=== PATIENT | female | born 1985 | race African-American/Black ===

== ENCOUNTER 2020-07-22 12:32 | Inpatient (IN) | payer OTHER ==
[2020-07-22 16:05] VITALS: BMI 32.5
[2020-07-22] MEDS ORDERED: BISMUTH SUBSALICYLATE 524 MG/30 ML UD PO PRN (18:02)
[2020-07-22] MEDS ORDERED: MAGNESIUM CITRATE 300 ML BOTTLE PO PRN (18:02)
[2020-07-22] MEDS ORDERED: IBUPROFEN 400 MG TABLET (FP) PO PRN (18:02)
[2020-07-22] MEDS ORDERED: MAGNESIUM HYDROX 2400MG/30ML ORAL SUSPENSION 30 ML CUP PO PRN (18:02)
[2020-07-22] MEDS ORDERED: NICOTINE POLACRILEX 2 MG GUM BUC PRN (18:02)
[2020-07-22] MEDS ORDERED: ACETAMINOPHEN 325 MG TABLET (FP) PO PRN ×2 (18:02)
[2020-07-22] MEDS ORDERED: ONDANSETRON *ODT* 4 MG TABLET SL PRN (18:02)
[2020-07-22] MEDS ORDERED: MENTHOL/PHENOL 1 EACH UD MM PRN (18:02)
[2020-07-22] MEDS ORDERED: ALBUTEROL SO4 HFA INHALER IH PRN (18:04)
[2020-07-22] MEDS ORDERED: chlordiazePOXIDE HCL 25 MG CAPSULE ONE (18:18)
[2020-07-22] MEDS: chlordiazePOXIDE HCL 25 MG CAPSULE PO PRN (18:21)
[2020-07-22] MEDS ORDERED: ALBUTEROL SO4 0.042% IH SOL 1.25 MG/3 ML VIAL.NEB NEB PRN (18:42)
[2020-07-22] MEDS: MELATONIN 5 MG TABLETS PO SCH (22:11)
[2020-07-22] MEDS: chlordiazePOXIDE HCL 25 MG CAPSULE PO SCH (22:11)
[2020-07-22] MEDS: THIAMINE HCL 100 MG TABLET (FP) PO SCH (22:11)
[2020-07-22] MEDS: hydrOXYzine PAMOATE 25 MG CAPSULE (FP) PO SCH (22:11)
[2020-07-23] MEDS: chlordiazePOXIDE HCL 25 MG CAPSULE PO SCH ×4 (06:07→22:34)
[2020-07-23] MEDS: hydrOXYzine PAMOATE 25 MG CAPSULE (FP) PO SCH ×2 (06:07→11:57)
[2020-07-23 09:57] LABS: POTASSIUM 3.9 mmol/L (3.5-5.1)
[2020-07-23 10:00] LABS: HEMATOCRIT 41.5 % (32.4-45.2); HEMOGLOBIN 13.9 GM/dL (10.7-15.3); MCH 30.3 pg (25.7-33.7); MCHC 33.4 g/dl (32.0-36.0); MEAN CELL VOLUME 90.7 fl (80-96); MEAN PLT VOLUME 9.1 fl (7.5-11.1); PLATELET COUNT 280 K/MM3 (134-434); RBC 4.58 M/mm3 (3.60-5.2); WHITE BLOOD COUNT 6.2 K/mm3 (4.0-10.0)
[2020-07-23 10:06] LABS: BLOOD UREA NITROGEN 12.3 mg/dL (7-18)
[2020-07-23 10:07] LABS: ALBUMIN 3.4 g/dl (3.4-5.0)
[2020-07-23 10:08] LABS: CALCIUM 8.8 mg/dL (8.5-10.1)
[2020-07-23 10:11] LABS: CREATININE 0.9 mg/dL (0.55-1.3)
[2020-07-23 10:13] LABS: BILIRUBIN,TOTAL 0.6 mg/dL (0.2-1)
[2020-07-23 10:59] LABS: HIV INTERPRETATION NEGATIVE (NEGATIVE)
[2020-07-23] MEDS: amLODIPine BESYLATE 10 MG TABLET (FP) PO SCH (11:57)
[2020-07-23] MEDS: PRENATAL VITAMINS W/ FOLIC ACID TABLET (FP) PO SCH (11:57)
[2020-07-23] MEDS: cloNIDine HCL 0.1 MG TABLET PO PRN ×2 (14:20→22:34)
[2020-07-23] MEDS: chlordiazePOXIDE HCL 25 MG CAPSULE PO PRN (14:21)
[2020-07-23] MEDS: hydrOXYzine PAMOATE 25 MG CAPSULE (FP) PO PRN (14:21)
[2020-07-23] MEDS: METHOCARBAMOL 500 MG TABLET PO PRN (14:22)
[2020-07-23] MEDS: THIAMINE HCL 100 MG TABLET (FP) PO SCH (22:34)
[2020-07-23] MEDS: MELATONIN 5 MG TABLETS PO SCH (22:34)
[2020-07-23] MEDS: traZODone HCL 50 MG TABLET (FP) PO SCH (22:34)
[2020-07-24] MEDS: cloNIDine HCL 0.1 MG TABLET PO PRN ×2 (05:38→12:02)
[2020-07-24] MEDS: METHOCARBAMOL 500 MG TABLET PO PRN ×2 (05:39→18:09)
[2020-07-24] MEDS: chlordiazePOXIDE HCL 25 MG CAPSULE PO SCH ×4 (05:42→22:21)
[2020-07-24] MEDS: amLODIPine BESYLATE 10 MG TABLET (FP) PO SCH (11:05)
[2020-07-24] MEDS: PRENATAL VITAMINS W/ FOLIC ACID TABLET (FP) PO SCH (11:05)
[2020-07-24] MEDS ORDERED: cloNIDine HCL 0.1 MG TABLET PO ONE (12:15)
[2020-07-24] MEDS: CITALOPRAM HYDROBROMIDE 10 MG TABLET PO SCH (14:48)
[2020-07-24] MEDS: MAG HYDROX/AL HYDROX/SIMETH 30 ML UNIT-DOSE CUP PO PRN ×2 (15:17→22:25)
[2020-07-24] MEDS: MELATONIN 5 MG TABLETS PO SCH (22:20)
[2020-07-24] MEDS: THIAMINE HCL 100 MG TABLET (FP) PO SCH (22:21)
[2020-07-24] MEDS: cloNIDine HCL 0.1 MG TABLET PO SCH (22:21)
[2020-07-24] MEDS: traZODone HCL 50 MG TABLET (FP) PO SCH (22:22)
[2020-07-25] MEDS ORDERED: chlordiazePOXIDE HCL 10 MG CAPSULE PO PRN
[2020-07-25] MEDS: METHOCARBAMOL 500 MG TABLET PO PRN ×2 (05:38→22:20)
[2020-07-25] MEDS: chlordiazePOXIDE HCL 10 MG CAPSULE PO SCH ×4 (05:39→22:18)
[2020-07-25] MEDS: MAG HYDROX/AL HYDROX/SIMETH 30 ML UNIT-DOSE CUP PO PRN (05:39)
[2020-07-25] MEDS: hydrOXYzine PAMOATE 25 MG CAPSULE (FP) PO PRN ×2 (05:40→10:07)
[2020-07-25] MEDS: CITALOPRAM HYDROBROMIDE 10 MG TABLET PO SCH (10:06)
[2020-07-25] MEDS: PRENATAL VITAMINS W/ FOLIC ACID TABLET (FP) PO SCH (10:07)
[2020-07-25] MEDS: cloNIDine HCL 0.1 MG TABLET PO SCH ×2 (10:07→22:17)
[2020-07-25] MEDS: amLODIPine BESYLATE 10 MG TABLET (FP) PO SCH (10:07)
[2020-07-25] MEDS: MELATONIN 5 MG TABLETS PO SCH (22:17)
[2020-07-25] MEDS: THIAMINE HCL 100 MG TABLET (FP) PO SCH (22:17)
[2020-07-25] MEDS: traZODone HCL 50 MG TABLET (FP) PO SCH (22:17)
[2020-07-26] MEDS: chlordiazePOXIDE HCL 10 MG CAPSULE PO SCH ×2 (04:32→17:27)
[2020-07-26] MEDS: MAG HYDROX/AL HYDROX/SIMETH 30 ML UNIT-DOSE CUP PO PRN (04:32)
[2020-07-26] MEDS: METHOCARBAMOL 500 MG TABLET PO PRN ×2 (04:32→17:28)
[2020-07-26] MEDS: cloNIDine HCL 0.1 MG TABLET PO SCH ×2 (10:09→22:17)
[2020-07-26] MEDS: amLODIPine BESYLATE 10 MG TABLET (FP) PO SCH (10:09)
[2020-07-26] MEDS: CITALOPRAM HYDROBROMIDE 10 MG TABLET PO SCH (10:10)
[2020-07-26] MEDS: hydrOXYzine PAMOATE 25 MG CAPSULE (FP) PO PRN ×2 (10:10→17:32)
[2020-07-26] MEDS: PRENATAL VITAMINS W/ FOLIC ACID TABLET (FP) PO SCH (10:10)
[2020-07-26] MEDS: traZODone HCL 50 MG TABLET (FP) PO SCH (22:17)
[2020-07-26] MEDS: THIAMINE HCL 100 MG TABLET (FP) PO SCH (22:17)
[2020-07-26] MEDS: MELATONIN 5 MG TABLETS PO SCH (22:18)
[2020-07-27] MEDS ORDERED: chlordiazePOXIDE HCL 10 MG CAPSULE PO ONE (05:00)
[2020-07-27] MEDS: hydrOXYzine PAMOATE 25 MG CAPSULE (FP) PO PRN (06:19)
[2020-07-27] MEDS: METHOCARBAMOL 500 MG TABLET PO PRN (06:19)
[2020-07-27] MEDS: cloNIDine HCL 0.1 MG TABLET PO SCH (09:33)
[2020-07-27] MEDS: PRENATAL VITAMINS W/ FOLIC ACID TABLET (FP) PO SCH (09:33)
[2020-07-27] MEDS: CITALOPRAM HYDROBROMIDE 10 MG TABLET PO SCH (09:33)
[2020-07-27] MEDS: amLODIPine BESYLATE 10 MG TABLET (FP) PO SCH (09:33)
[2020-07-27 09:41] VITALS: BP 129/71; PULSE 84; TEMP 97.5
== END 2020-07-27 10:26 | disposition other institution (70) | DRG 774 ==
LOC: YASAS 12:32 → Y6N 16:47
PROVIDERS: ADMIT Allergy & Immunology; ATTEND Allergy & Immunology
PROC: HZ2ZZZZ Detoxification Services for Substance Abuse Treatment (ICD-10-PCS; principal; 2020-07-22)
DX: F10.230 Alcohol dependence with withdrawal, uncomplicated (principal); F14.20 Cocaine dependence, uncomplicated; F12.20 Cannabis dependence, uncomplicated; F17.213 Nicotine dependence, cigarettes, with withdrawal; F43.10 Post-traumatic stress disorder, unspecified; F41.9 Anxiety disorder, unspecified; I10 Essential (primary) hypertension; J45.20 Mild intermittent asthma, uncomplicated; Z91.410 Personal history of adult physical and sexual abuse; Z90.49 Acquired absence of other specified parts of digestive tract; Z88.0 Allergy status to penicillin; Z91.018 Allergy to other foods; Z56.0 Unemployment, unspecified; Z59.0 Homelessness
CPT/HCPCS: 36415; 80053; 85027; 86780; 87389; 93005; 93010; C9803; J0735; Q0162; U0003

== ENCOUNTER 2020-07-27 10:18 | Inpatient (IN) | payer OTHER ==
[2020-07-27] MEDS ORDERED: guaiFENesin 200 MG/10 ML 10 ML UNIT-DOSE CUPS PO PRN (13:00)
[2020-07-27] MEDS ORDERED: P-EPHED 60MG/TRIPROLIDI 2.5MG TABLET PO PRN (13:00)
[2020-07-27] MEDS ORDERED: MENTHOL/PHENOL 1 EACH UD MM PRN (13:00)
[2020-07-27] MEDS ORDERED: LOPERAMIDE HCL 2 MG CAPSULE PO PRN (13:00)
[2020-07-27] MEDS ORDERED: MAG HYDROX/AL HYDROX/SIMETH 30 ML UNIT-DOSE CUP PO PRN (13:00)
[2020-07-27] MEDS ORDERED: IBUPROFEN 400 MG TABLET (FP) PO PRN (13:00)
[2020-07-27] MEDS ORDERED: MAGNESIUM CITRATE 300 ML BOTTLE PO PRN (13:00)
[2020-07-27] MEDS ORDERED: ALBUTEROL SO4 2.5/IPRATROPIUM 0.5 INH SOL 3 ML VIAL.NEB. NEB PRN (13:10)
[2020-07-27] MEDS: METHOCARBAMOL 500 MG TABLET PO SCH ×3 (15:53→21:36)
[2020-07-27] MEDS ORDERED: PT OWN MED DRAWER 7, Y5N ONE (16:36)
[2020-07-27] MEDS: hydrOXYzine PAMOATE 25 MG CAPSULE (FP) PO PRN (16:47)
[2020-07-27] MEDS: THIAMINE HCL 100 MG TABLET (FP) PO SCH (21:36)
[2020-07-27] MEDS: traZODone HCL 50 MG TABLET (FP) PO SCH (21:36)
[2020-07-27] MEDS: cloNIDine HCL 0.1 MG TABLET PO SCH (21:36)
[2020-07-27] MEDS: MELATONIN 5 MG TABLETS PO SCH (21:36)
[2020-07-28] MEDS: hydrOXYzine PAMOATE 25 MG CAPSULE (FP) PO PRN ×3 (06:28→18:12)
[2020-07-28] MEDS: MAGNESIUM HYDROX 2400MG/30ML ORAL SUSPENSION 30 ML CUP PO PRN (06:28)
[2020-07-28] MEDS ORDERED: CITALOPRAM HYDROBROMIDE 10 MG TABLET PO SCH (10:00)
[2020-07-28] MEDS: PRENATAL VITAMINS W/ FOLIC ACID TABLET (FP) PO SCH (10:02)
[2020-07-28] MEDS: NICOTINE 7 MG/24 HOURS TOPICAL PATCH TD SCH (10:02)
[2020-07-28] MEDS: amLODIPine BESYLATE 10 MG TABLET (FP) PO SCH (10:03)
[2020-07-28] MEDS ORDERED: PT OWN MED DRAWER 7, Y5N ONE (10:03)
[2020-07-28] MEDS: cloNIDine HCL 0.1 MG TABLET PO SCH ×2 (10:03→21:05)
[2020-07-28] MEDS: METHOCARBAMOL 500 MG TABLET PO SCH ×4 (10:03→21:05)
[2020-07-28] MEDS: ACETAMINOPHEN 325 MG TABLET (FP) PO PRN (18:12)
[2020-07-28] MEDS: THIAMINE HCL 100 MG TABLET (FP) PO SCH (21:05)
[2020-07-28] MEDS: traZODone HCL 50 MG TABLET (FP) PO SCH (21:05)
[2020-07-28] MEDS: MELATONIN 5 MG TABLETS PO SCH (21:05)
[2020-07-29] MEDS: ACETAMINOPHEN 325 MG TABLET (FP) PO PRN (06:27)
[2020-07-29] MEDS: MAGNESIUM HYDROX 2400MG/30ML ORAL SUSPENSION 30 ML CUP PO PRN (06:27)
[2020-07-29] MEDS: hydrOXYzine PAMOATE 25 MG CAPSULE (FP) PO PRN ×3 (06:27→18:34)
[2020-07-29] MEDS: METHOCARBAMOL 500 MG TABLET PO SCH ×4 (09:58→21:08)
[2020-07-29] MEDS: NICOTINE POLACRILEX 2 MG GUM BUC PRN (09:59)
[2020-07-29] MEDS: cloNIDine HCL 0.1 MG TABLET PO SCH ×2 (09:59→21:08)
[2020-07-29] MEDS: PRENATAL VITAMINS W/ FOLIC ACID TABLET (FP) PO SCH (09:59)
[2020-07-29] MEDS: amLODIPine BESYLATE 10 MG TABLET (FP) PO SCH (09:59)
[2020-07-29] MEDS: NICOTINE 7 MG/24 HOURS TOPICAL PATCH TD SCH (09:59)
[2020-07-29] MEDS: CITALOPRAM HYDROBROMIDE 10 MG TABLET PO SCH (10:47)
[2020-07-29] MEDS ORDERED: PT OWN MED DRAWER 7, Y5N ONE ×3 (11:00→19:14)
[2020-07-29] MEDS: traZODone HCL 50 MG TABLET (FP) PO SCH (21:07)
[2020-07-29] MEDS: THIAMINE HCL 100 MG TABLET (FP) PO SCH (21:08)
[2020-07-29] MEDS: PRAZOSIN HCL 1 MG CAPSULE PO SCH (21:08)
[2020-07-30] MEDS: cloNIDine HCL 0.1 MG TABLET PO SCH ×2 (09:44→21:20)
[2020-07-30] MEDS: PRENATAL VITAMINS W/ FOLIC ACID TABLET (FP) PO SCH (09:44)
[2020-07-30] MEDS: amLODIPine BESYLATE 10 MG TABLET (FP) PO SCH (09:44)
[2020-07-30] MEDS: METHOCARBAMOL 500 MG TABLET PO SCH ×4 (09:44→21:20)
[2020-07-30] MEDS: NICOTINE 7 MG/24 HOURS TOPICAL PATCH TD SCH (09:45)
[2020-07-30] MEDS: CITALOPRAM HYDROBROMIDE 10 MG TABLET PO SCH (09:45)
[2020-07-30] MEDS: hydrOXYzine PAMOATE 25 MG CAPSULE (FP) PO PRN ×2 (09:47→21:19)
[2020-07-30] MEDS ORDERED: ONDANSETRON *ODT* 4 MG TABLET SL PRN (10:58)
[2020-07-30] MEDS ORDERED: PT OWN MED DRAWER 7, Y5N ONE (14:09)
[2020-07-30] MEDS: traZODone HCL 50 MG TABLET (FP) PO SCH (21:19)
[2020-07-30] MEDS: THIAMINE HCL 100 MG TABLET (FP) PO SCH (21:19)
[2020-07-30] MEDS: PRAZOSIN HCL 1 MG CAPSULE PO SCH (21:20)
[2020-07-31] MEDS: MAGNESIUM HYDROX 2400MG/30ML ORAL SUSPENSION 30 ML CUP PO PRN (06:22)
[2020-07-31] MEDS: ACETAMINOPHEN 325 MG TABLET (FP) PO PRN (06:22)
[2020-07-31] MEDS ORDERED: PT OWN MED DRAWER 7, Y5N ONE ×2 (08:53→09:24)
[2020-07-31] MEDS: CITALOPRAM HYDROBROMIDE 10 MG TABLET PO SCH (09:23)
[2020-07-31] MEDS: cloNIDine HCL 0.1 MG TABLET PO SCH ×2 (09:24→21:25)
[2020-07-31] MEDS: METHOCARBAMOL 500 MG TABLET PO SCH ×4 (09:24→21:25)
[2020-07-31] MEDS: amLODIPine BESYLATE 10 MG TABLET (FP) PO SCH (09:25)
[2020-07-31] MEDS: hydrOXYzine PAMOATE 25 MG CAPSULE (FP) PO PRN ×2 (09:25→17:47)
[2020-07-31] MEDS: PRENATAL VITAMINS W/ FOLIC ACID TABLET (FP) PO SCH (09:25)
[2020-07-31] MEDS: NICOTINE 7 MG/24 HOURS TOPICAL PATCH TD SCH (09:27)
[2020-07-31] MEDS: NICOTINE POLACRILEX 2 MG GUM BUC PRN (09:27)
[2020-07-31] MEDS ORDERED: ALBUTEROL SO4 2.5/IPRATROPIUM 0.5 INH SOL 3 ML VIAL.NEB. NEB PRN (09:44)
[2020-07-31] MEDS ORDERED: ALBUTEROL SO4 HFA INHALER IH ONE (20:15)
[2020-07-31] MEDS: THIAMINE HCL 100 MG TABLET (FP) PO SCH (21:25)
[2020-07-31] MEDS: PRAZOSIN HCL 1 MG CAPSULE PO SCH (21:25)
[2020-07-31] MEDS: traZODone HCL 50 MG TABLET (FP) PO SCH (21:26)
[2020-08-01] MEDS ORDERED: ALBUTEROL SO4 HFA INHALER IH PRN (00:51)
[2020-08-01] MEDS ORDERED: PT OWN MED DRAWER 7, Y5N ONE ×2 (09:17→09:54)
[2020-08-01] MEDS: PRENATAL VITAMINS W/ FOLIC ACID TABLET (FP) PO SCH (09:50)
[2020-08-01] MEDS: CITALOPRAM HYDROBROMIDE 10 MG TABLET PO SCH (09:50)
[2020-08-01] MEDS: hydrOXYzine PAMOATE 25 MG CAPSULE (FP) PO PRN ×2 (09:51→21:19)
[2020-08-01] MEDS: METHOCARBAMOL 500 MG TABLET PO SCH ×4 (09:51→21:13)
[2020-08-01] MEDS: NICOTINE 7 MG/24 HOURS TOPICAL PATCH TD SCH (09:51)
[2020-08-01] MEDS: cloNIDine HCL 0.1 MG TABLET PO SCH (09:51)
[2020-08-01] MEDS: amLODIPine BESYLATE 10 MG TABLET (FP) PO SCH (09:51)
[2020-08-01] MEDS: NICOTINE POLACRILEX 2 MG GUM BUC PRN ×3 (09:55→17:14)
[2020-08-01] MEDS: ACETAMINOPHEN 325 MG TABLET (FP) PO PRN (17:13)
[2020-08-01] MEDS: THIAMINE HCL 100 MG TABLET (FP) PO SCH (21:14)
[2020-08-01] MEDS: PRAZOSIN HCL 1 MG CAPSULE PO SCH (21:14)
[2020-08-01] MEDS: traZODone HCL 50 MG TABLET (FP) PO SCH (21:14)
[2020-08-01] MEDS: cloNIDine HCL 0.1 MG TABLET PO PRN (21:19)
[2020-08-02] MEDS: NICOTINE 7 MG/24 HOURS TOPICAL PATCH TD SCH (09:59)
[2020-08-02] MEDS: amLODIPine BESYLATE 10 MG TABLET (FP) PO SCH (09:59)
[2020-08-02] MEDS: CITALOPRAM HYDROBROMIDE 10 MG TABLET PO SCH (09:59)
[2020-08-02] MEDS: METHOCARBAMOL 500 MG TABLET PO SCH ×4 (09:59→21:12)
[2020-08-02] MEDS: PRENATAL VITAMINS W/ FOLIC ACID TABLET (FP) PO SCH (09:59)
[2020-08-02] MEDS: NICOTINE POLACRILEX 2 MG GUM BUC PRN (10:01)
[2020-08-02] MEDS: hydrOXYzine PAMOATE 25 MG CAPSULE (FP) PO PRN ×2 (10:01→21:15)
[2020-08-02] MEDS ORDERED: PT OWN MED DRAWER 7, Y5N ONE (10:20)
[2020-08-02] MEDS: THIAMINE HCL 100 MG TABLET (FP) PO SCH (21:12)
[2020-08-02] MEDS: PRAZOSIN HCL 1 MG CAPSULE PO SCH (21:12)
[2020-08-02] MEDS: traZODone HCL 50 MG TABLET (FP) PO SCH (21:12)
[2020-08-03] MEDS: METHOCARBAMOL 500 MG TABLET PO SCH ×4 (09:20→21:18)
[2020-08-03] MEDS: PRENATAL VITAMINS W/ FOLIC ACID TABLET (FP) PO SCH (09:21)
[2020-08-03] MEDS: CITALOPRAM HYDROBROMIDE 10 MG TABLET PO SCH (09:22)
[2020-08-03] MEDS: amLODIPine BESYLATE 10 MG TABLET (FP) PO SCH (09:22)
[2020-08-03] MEDS: NICOTINE 7 MG/24 HOURS TOPICAL PATCH TD SCH (09:22)
[2020-08-03] MEDS: NICOTINE POLACRILEX 2 MG GUM BUC PRN (09:23)
[2020-08-03] MEDS: hydrOXYzine PAMOATE 25 MG CAPSULE (FP) PO PRN ×3 (09:23→21:18)
[2020-08-03] MEDS: MAGNESIUM HYDROX 2400MG/30ML ORAL SUSPENSION 30 ML CUP PO PRN (09:24)
[2020-08-03] MEDS ORDERED: PT OWN MED DRAWER 7, Y5N ONE ×2 (14:42→21:26)
[2020-08-03] MEDS: cloNIDine HCL 0.1 MG TABLET PO PRN (21:18)
[2020-08-03] MEDS: THIAMINE HCL 100 MG TABLET (FP) PO SCH (21:18)
[2020-08-03] MEDS: traZODone HCL 50 MG TABLET (FP) PO SCH (21:18)
[2020-08-03] MEDS: PRAZOSIN HCL 1 MG CAPSULE PO SCH (21:19)
[2020-08-03] MEDS: MICONAZOLE NITRATE 100 MG SUPP SUPP.VAG PV SCH (21:25)
[2020-08-04] MEDS ORDERED: ALBUTEROL SO4 2.5/IPRATROPIUM 0.5 INH SOL 3 ML VIAL.NEB. NEB PRN (09:44)
[2020-08-04] MEDS: METHOCARBAMOL 500 MG TABLET PO SCH ×4 (10:00→21:06)
[2020-08-04] MEDS: PRENATAL VITAMINS W/ FOLIC ACID TABLET (FP) PO SCH (10:00)
[2020-08-04] MEDS: CITALOPRAM HYDROBROMIDE 10 MG TABLET PO SCH (10:00)
[2020-08-04] MEDS: amLODIPine BESYLATE 10 MG TABLET (FP) PO SCH (10:00)
[2020-08-04] MEDS: hydrOXYzine PAMOATE 25 MG CAPSULE (FP) PO PRN ×2 (10:02→21:10)
[2020-08-04] MEDS: NICOTINE 7 MG/24 HOURS TOPICAL PATCH TD SCH (10:03)
[2020-08-04] MEDS ORDERED: [UNRECOGNIZED DRUG - OTHER] PO SCH (10:14)
[2020-08-04] MEDS ORDERED: PT OWN MED DRAWER 7, Y5N ONE ×3 (10:40→19:56)
[2020-08-04] MEDS: ACETAMINOPHEN 325 MG TABLET (FP) PO PRN (17:52)
[2020-08-04] MEDS: MAGNESIUM HYDROX 2400MG/30ML ORAL SUSPENSION 30 ML CUP PO PRN (17:52)
[2020-08-04] MEDS: PRAZOSIN HCL 1 MG CAPSULE PO SCH (21:06)
[2020-08-04] MEDS: THIAMINE HCL 100 MG TABLET (FP) PO SCH (21:06)
[2020-08-04] MEDS: traZODone HCL 50 MG TABLET (FP) PO SCH (21:07)
[2020-08-04] MEDS: MICONAZOLE NITRATE 100 MG SUPP SUPP.VAG PV SCH (21:08)
[2020-08-04] MEDS: cloNIDine HCL 0.1 MG TABLET PO PRN (21:10)
[2020-08-05] MEDS ORDERED: PT OWN MED DRAWER 7, Y5N ONE ×2 (08:44→21:07)
[2020-08-05] MEDS: METHOCARBAMOL 500 MG TABLET PO SCH ×4 (09:56→21:04)
[2020-08-05] MEDS: amLODIPine BESYLATE 10 MG TABLET (FP) PO SCH (09:56)
[2020-08-05] MEDS: NICOTINE 7 MG/24 HOURS TOPICAL PATCH TD SCH (09:57)
[2020-08-05] MEDS: CITALOPRAM HYDROBROMIDE 20 MG TABLET PO SCH (09:57)
[2020-08-05] MEDS: PRENATAL VITAMINS W/ FOLIC ACID TABLET (FP) PO SCH (09:59)
[2020-08-05] MEDS: ACETAMINOPHEN 325 MG TABLET (FP) PO PRN (18:32)
[2020-08-05] MEDS: THIAMINE HCL 100 MG TABLET (FP) PO SCH (21:04)
[2020-08-05] MEDS: traZODone HCL 50 MG TABLET (FP) PO SCH (21:04)
[2020-08-05] MEDS: PRAZOSIN HCL 1 MG CAPSULE PO SCH (21:04)
[2020-08-05] MEDS: hydrOXYzine PAMOATE 25 MG CAPSULE (FP) PO PRN (21:05)
[2020-08-05] MEDS: MICONAZOLE NITRATE 100 MG SUPP SUPP.VAG PV SCH (21:06)
[2020-08-05] MEDS: cloNIDine HCL 0.1 MG TABLET PO PRN (21:08)
[2020-08-06] MEDS: METHOCARBAMOL 500 MG TABLET PO SCH ×4 (09:48→21:13)
[2020-08-06] MEDS: amLODIPine BESYLATE 10 MG TABLET (FP) PO SCH (09:49)
[2020-08-06] MEDS: CITALOPRAM HYDROBROMIDE 20 MG TABLET PO SCH (09:49)
[2020-08-06] MEDS: PRENATAL VITAMINS W/ FOLIC ACID TABLET (FP) PO SCH (09:49)
[2020-08-06] MEDS: NICOTINE 7 MG/24 HOURS TOPICAL PATCH TD SCH (09:50)
[2020-08-06] MEDS: hydrOXYzine PAMOATE 25 MG CAPSULE (FP) PO PRN ×2 (09:50→21:11)
[2020-08-06] MEDS: THIAMINE HCL 100 MG TABLET (FP) PO SCH (21:11)
[2020-08-06] MEDS: traZODone HCL 50 MG TABLET (FP) PO SCH (21:11)
[2020-08-06] MEDS: PRAZOSIN HCL 1 MG CAPSULE PO SCH (21:11)
[2020-08-06] MEDS: cloNIDine HCL 0.1 MG TABLET PO PRN (21:12)
[2020-08-06] MEDS: MICONAZOLE NITRATE 100 MG SUPP SUPP.VAG PV SCH (21:14)
[2020-08-06] MEDS ORDERED: PT OWN MED DRAWER 7, Y5N ONE (21:15)
[2020-08-07] MEDS: PRENATAL VITAMINS W/ FOLIC ACID TABLET (FP) PO SCH (09:44)
[2020-08-07] MEDS: amLODIPine BESYLATE 10 MG TABLET (FP) PO SCH (09:44)
[2020-08-07] MEDS: METHOCARBAMOL 500 MG TABLET PO SCH ×4 (09:44→21:12)
[2020-08-07] MEDS: NICOTINE 7 MG/24 HOURS TOPICAL PATCH TD SCH (09:44)
[2020-08-07] MEDS: CITALOPRAM HYDROBROMIDE 20 MG TABLET PO SCH (09:45)
[2020-08-07] MEDS: ACETAMINOPHEN 325 MG TABLET (FP) PO PRN (09:47)
[2020-08-07] MEDS ORDERED: PT OWN MED DRAWER 7, Y5N ONE (13:25)
[2020-08-07] MEDS: hydrOXYzine PAMOATE 25 MG CAPSULE (FP) PO PRN ×2 (13:32→21:12)
[2020-08-07] MEDS: cloNIDine HCL 0.1 MG TABLET PO PRN (21:12)
[2020-08-07] MEDS: THIAMINE HCL 100 MG TABLET (FP) PO SCH (21:12)
[2020-08-07] MEDS: PRAZOSIN HCL 1 MG CAPSULE PO SCH (21:12)
[2020-08-07] MEDS: traZODone HCL 50 MG TABLET (FP) PO SCH (21:12)
[2020-08-07] MEDS: MICONAZOLE NITRATE 100 MG SUPP SUPP.VAG PV SCH (21:12)
[2020-08-08] MEDS: hydrOXYzine PAMOATE 25 MG CAPSULE (FP) PO PRN (06:25)
[2020-08-08] MEDS: ACETAMINOPHEN 325 MG TABLET (FP) PO PRN (06:25)
[2020-08-08 07:01] VITALS: BP 109/75; PULSE 67; TEMP 98.1
[2020-08-08] MEDS ORDERED: PT OWN MED DRAWER 7, Y5N ONE (09:01)
[2020-08-08] MEDS: amLODIPine BESYLATE 10 MG TABLET (FP) PO SCH (09:16)
[2020-08-08] MEDS: PRENATAL VITAMINS W/ FOLIC ACID TABLET (FP) PO SCH (09:16)
[2020-08-08] MEDS: METHOCARBAMOL 500 MG TABLET PO SCH (09:17)
[2020-08-08] MEDS: NICOTINE 7 MG/24 HOURS TOPICAL PATCH TD SCH (09:17)
[2020-08-08] MEDS: CITALOPRAM HYDROBROMIDE 20 MG TABLET PO SCH (09:17)
== END 2020-08-08 09:25 | disposition home or self-care (01) | DRG 772 ==
LOC: YASAS 10:18 → Y3E 10:19
PROVIDERS: ADMIT Allergy & Immunology; ATTEND Allergy & Immunology
PROC: HZ42ZZZ Group Counseling for Substance Abuse Treatment, Cognitive-Behavioral (ICD-10-PCS; principal; 2020-07-27)
DX: F10.20 Alcohol dependence, uncomplicated (principal); F14.20 Cocaine dependence, uncomplicated; F12.20 Cannabis dependence, uncomplicated; F17.210 Nicotine dependence, cigarettes, uncomplicated; F19.282 Other psychoactive substance dependence with psychoactive substance-induced sleep disorder; F19.24 Other psychoactive substance dependence with psychoactive substance-induced mood disorder; F19.280 Other psychoactive substance dependence with psychoactive substance-induced anxiety disorder; F43.10 Post-traumatic stress disorder, unspecified; F41.9 Anxiety disorder, unspecified; I10 Essential (primary) hypertension; J45.909 Unspecified asthma, uncomplicated; Z90.49 Acquired absence of other specified parts of digestive tract; Z88.0 Allergy status to penicillin; Z91.018 Allergy to other foods
CPT/HCPCS: C9803; J0735; Q0162; U0003

== ENCOUNTER 2020-10-12 15:07 | Inpatient (IN) | payer OTHER ==
[2020-10-12 17:33] VITALS: BMI 43.6
[2020-10-12] MEDS ORDERED: MAGNESIUM CITRATE 300 ML BOTTLE PO PRN (18:24)
[2020-10-12] MEDS ORDERED: MAGNESIUM HYDROX 2400MG/30ML ORAL SUSPENSION 30 ML CUP PO PRN (18:24)
[2020-10-12] MEDS ORDERED: NICOTINE POLACRILEX 2 MG GUM BUC PRN (18:24)
[2020-10-12] MEDS ORDERED: ACETAMINOPHEN 325 MG TABLET (FP) PO PRN (18:24)
[2020-10-12] MEDS ORDERED: MENTHOL/PHENOL 1 EACH UD MM PRN (18:24)
[2020-10-12] MEDS ORDERED: MAG HYDROX/AL HYDROX/SIMETH 30 ML UNIT-DOSE CUP PO PRN (18:24)
[2020-10-12] MEDS ORDERED: diazePAM 5 MG TABLET PO PRN (18:24)
[2020-10-12] MEDS ORDERED: ALBUTEROL SO4 HFA INHALER IH PRN (19:40)
[2020-10-12] MEDS: cloNIDine HCL 0.1 MG TABLET PO SCH (23:10)
[2020-10-12] MEDS: diazePAM 5 MG TABLET PO SCH (23:10)
[2020-10-12] MEDS: THIAMINE HCL 100 MG TABLET (FP) PO SCH (23:14)
[2020-10-12] MEDS: MELATONIN 5 MG TABLETS PO SCH (23:14)
[2020-10-13] MEDS: BISMUTH SUBSALICYLATE 524 MG/30 ML UD PO PRN (03:45)
[2020-10-13] MEDS: diazePAM 5 MG TABLET PO SCH ×4 (06:22→22:47)
[2020-10-13] MEDS: METHOCARBAMOL 500 MG TABLET PO PRN ×2 (06:23→20:40)
[2020-10-13] MEDS: IBUPROFEN 400 MG TABLET (FP) PO PRN (11:07)
[2020-10-13] MEDS: PRENATAL VITAMINS W/ FOLIC ACID TABLET (FP) PO SCH (11:07)
[2020-10-13] MEDS: cloNIDine HCL 0.1 MG TABLET PO SCH ×2 (11:08→22:49)
[2020-10-13] MEDS: hydrOXYzine PAMOATE 25 MG CAPSULE (FP) PO PRN (11:08)
[2020-10-13] MEDS: NICOTINE 21 MG/24 HOURS TOPICAL PATCH TD SCH (11:09)
[2020-10-13] MEDS: amLODIPine BESYLATE 10 MG TABLET (FP) PO SCH (11:12)
[2020-10-13 11:33] LABS: HEMATOCRIT 34.4 % (32.4-45.2); HEMOGLOBIN 11.6 GM/dL (10.7-15.3); MCH 29.2 pg (25.7-33.7); MCHC 33.7 g/dl (32.0-36.0); MEAN CELL VOLUME 86.7 fl (80-96); PLATELET COUNT 262 K/MM3 (134-434); RBC 3.96 M/mm3 (3.60-5.2); RDW 13.4 % (11.6-15.6)
[2020-10-13 11:37] LABS: ALBUMIN 3.3 g/dl (3.4-5.0); BLOOD UREA NITROGEN 12.9 mg/dL (7-18); CALCIUM 8.6 mg/dL (8.5-10.1)
[2020-10-13 11:41] LABS: CREATININE 0.6 mg/dL (0.55-1.3)
[2020-10-13 11:42] LABS: BILIRUBIN,TOTAL 0.7 mg/dL (0.2-1); TOT PROT 6.6 g/dl (6.4-8.2)
[2020-10-13] MEDS: lamoTRIgine 100 MG TABLET PO SCH (12:05)
[2020-10-13] MEDS: ESCITALOPRAM OXALATE 10 MG TABLET PO SCH (12:05)
[2020-10-13] MEDS: ACETAMINOPHEN 325 MG TABLET (FP) PO PRN (18:32)
[2020-10-13] MEDS: traZODone HCL 50 MG TABLET (FP) PO SCH (22:48)
[2020-10-13] MEDS: PRAZOSIN HCL 1 MG CAPSULE PO SCH (22:48)
[2020-10-13] MEDS: THIAMINE HCL 100 MG TABLET (FP) PO SCH (22:48)
[2020-10-13] MEDS: MELATONIN 5 MG TABLETS PO SCH (22:52)
[2020-10-14] MEDS: diazePAM 5 MG TABLET PO SCH ×3 (06:32→22:45)
[2020-10-14] MEDS: METHOCARBAMOL 500 MG TABLET PO PRN (06:33)
[2020-10-14] MEDS: NICOTINE 21 MG/24 HOURS TOPICAL PATCH TD SCH (10:56)
[2020-10-14] MEDS: ESCITALOPRAM OXALATE 10 MG TABLET PO SCH (11:02)
[2020-10-14] MEDS: cloNIDine HCL 0.1 MG TABLET PO SCH ×2 (11:03→22:45)
[2020-10-14] MEDS: lamoTRIgine 100 MG TABLET PO SCH (11:03)
[2020-10-14] MEDS: amLODIPine BESYLATE 10 MG TABLET (FP) PO SCH (11:03)
[2020-10-14] MEDS: PRENATAL VITAMINS W/ FOLIC ACID TABLET (FP) PO SCH (11:03)
[2020-10-14] MEDS: IBUPROFEN 400 MG TABLET (FP) PO PRN ×2 (11:06→18:02)
[2020-10-14] MEDS ORDERED: MASKS NR ONE (11:25)
[2020-10-14] MEDS: BISMUTH SUBSALICYLATE 524 MG/30 ML UD PO PRN (14:48)
[2020-10-14] MEDS: ONDANSETRON *ODT* 4 MG TABLET SL PRN (14:49)
[2020-10-14] MEDS: traZODone HCL 50 MG TABLET (FP) PO SCH (22:45)
[2020-10-14] MEDS: PRAZOSIN HCL 1 MG CAPSULE PO SCH (22:45)
[2020-10-14] MEDS: THIAMINE HCL 100 MG TABLET (FP) PO SCH (22:46)
[2020-10-14] MEDS: ACETAMINOPHEN 325 MG TABLET (FP) PO PRN (22:48)
[2020-10-14] MEDS: MELATONIN 5 MG TABLETS PO SCH (22:51)
[2020-10-15] MEDS: diazePAM 5 MG TABLET PO SCH ×2 (06:39→17:53)
[2020-10-15] MEDS: ACETAMINOPHEN 325 MG TABLET (FP) PO PRN ×3 (06:40→22:45)
[2020-10-15] MEDS: amLODIPine BESYLATE 10 MG TABLET (FP) PO SCH (10:51)
[2020-10-15] MEDS: ESCITALOPRAM OXALATE 10 MG TABLET PO SCH (10:51)
[2020-10-15] MEDS: lamoTRIgine 100 MG TABLET PO SCH (10:51)
[2020-10-15] MEDS: cloNIDine HCL 0.1 MG TABLET PO SCH ×2 (10:51→22:42)
[2020-10-15] MEDS: NICOTINE 21 MG/24 HOURS TOPICAL PATCH TD SCH (10:54)
[2020-10-15] MEDS: PRENATAL VITAMINS W/ FOLIC ACID TABLET (FP) PO SCH (10:54)
[2020-10-15] MEDS: ONDANSETRON *ODT* 4 MG TABLET SL PRN (14:16)
[2020-10-15] MEDS: METHOCARBAMOL 500 MG TABLET PO PRN (14:16)
[2020-10-15] MEDS: hydrOXYzine PAMOATE 25 MG CAPSULE (FP) PO PRN (17:53)
[2020-10-15] MEDS: PRAZOSIN HCL 1 MG CAPSULE PO SCH (22:44)
[2020-10-15] MEDS: traZODone HCL 50 MG TABLET (FP) PO SCH (22:44)
[2020-10-15] MEDS: THIAMINE HCL 100 MG TABLET (FP) PO SCH (22:44)
[2020-10-15] MEDS: MELATONIN 5 MG TABLETS PO SCH (22:47)
[2020-10-16] MEDS ORDERED: diazePAM 5 MG TABLET PO ONE (06:00)
[2020-10-16 06:10] LABS: SARS-CoV-2 NAA Not Detected (Not Detected)
[2020-10-16] MEDS: METHOCARBAMOL 500 MG TABLET PO PRN (06:43)
[2020-10-16] MEDS: amLODIPine BESYLATE 10 MG TABLET (FP) PO SCH (10:34)
[2020-10-16] MEDS: cloNIDine HCL 0.1 MG TABLET PO SCH (10:34)
[2020-10-16] MEDS: ESCITALOPRAM OXALATE 10 MG TABLET PO SCH (10:35)
[2020-10-16] MEDS: lamoTRIgine 100 MG TABLET PO SCH (10:35)
[2020-10-16] MEDS: NICOTINE 21 MG/24 HOURS TOPICAL PATCH TD SCH (10:35)
[2020-10-16] MEDS: PRENATAL VITAMINS W/ FOLIC ACID TABLET (FP) PO SCH (10:35)
[2020-10-16] MEDS: IBUPROFEN 400 MG TABLET (FP) PO PRN (10:36)
[2020-10-16 11:36] VITALS: BP 121/63; PULSE 76; TEMP 98.7
== END 2020-10-16 12:22 | disposition other institution (70) | DRG 774 ==
LOC: YASAS 15:07 → Y6N 19:04
PROVIDERS: ADMIT Allergy & Immunology; ATTEND Allergy & Immunology
PROC: HZ2ZZZZ Detoxification Services for Substance Abuse Treatment (ICD-10-PCS; principal; 2020-10-12)
DX: F10.230 Alcohol dependence with withdrawal, uncomplicated (principal); F14.20 Cocaine dependence, uncomplicated; F12.10 Cannabis abuse, uncomplicated; F17.210 Nicotine dependence, cigarettes, uncomplicated; F19.280 Other psychoactive substance dependence with psychoactive substance-induced anxiety disorder; F19.282 Other psychoactive substance dependence with psychoactive substance-induced sleep disorder; F43.10 Post-traumatic stress disorder, unspecified; F41.9 Anxiety disorder, unspecified; I10 Essential (primary) hypertension; J45.20 Mild intermittent asthma, uncomplicated; R73.9 Hyperglycemia, unspecified; E66.01 Morbid (severe) obesity due to excess calories; Z68.41 Body mass index [BMI] 40.0-44.9, adult; Z91.410 Personal history of adult physical and sexual abuse; Z56.0 Unemployment, unspecified; Z59.0 Homelessness; Z91.018 Allergy to other foods; Z88.0 Allergy status to penicillin
CPT/HCPCS: 36415; 80053; 81025; 82947; 82962; 85027; 86780; 93005; 93010; C9803; J0735; Q0162; U0003; U0005

== ENCOUNTER 2020-10-16 11:34 | Inpatient (IN) | payer OTHER ==
[2020-10-16] MEDS ORDERED: guaiFENesin 200 MG/10 ML 10 ML UNIT-DOSE CUPS PO PRN (14:02)
[2020-10-16] MEDS ORDERED: P-EPHED 60MG/TRIPROLIDI 2.5MG TABLET PO PRN (14:02)
[2020-10-16] MEDS ORDERED: MENTHOL/PHENOL 1 EACH UD MM PRN (14:02)
[2020-10-16] MEDS ORDERED: MAGNESIUM CITRATE 300 ML BOTTLE PO PRN (14:02)
[2020-10-16] MEDS ORDERED: MAG HYDROX/AL HYDROX/SIMETH 30 ML UNIT-DOSE CUP PO PRN (14:02)
[2020-10-16] MEDS ORDERED: MAGNESIUM HYDROX 2400MG/30ML ORAL SUSPENSION 30 ML CUP PO PRN (14:02)
[2020-10-16] MEDS ORDERED: LOPERAMIDE HCL 2 MG CAPSULE PO PRN (14:02)
[2020-10-16] MEDS ORDERED: ALBUTEROL SO4 HFA INHALER IH PRN (14:03)
[2020-10-16] MEDS: ACETAMINOPHEN 325 MG TABLET (FP) PO PRN (16:00)
[2020-10-16] MEDS: hydrOXYzine PAMOATE 25 MG CAPSULE (FP) PO PRN (16:00)
[2020-10-16] MEDS: METHOCARBAMOL 500 MG TABLET PO SCH ×2 (17:43→21:43)
[2020-10-16] MEDS: cloNIDine HCL 0.1 MG TABLET PO SCH (21:43)
[2020-10-16] MEDS: traZODone HCL 50 MG TABLET (FP) PO SCH (21:43)
[2020-10-16] MEDS: MELATONIN 5 MG TABLETS PO SCH (21:44)
[2020-10-16] MEDS: THIAMINE HCL 100 MG TABLET (FP) PO SCH (21:44)
[2020-10-16] MEDS: NICOTINE POLACRILEX 2 MG GUM BUC PRN (21:45)
[2020-10-16] MEDS: PRAZOSIN HCL 1 MG CAPSULE PO SCH (22:33)
[2020-10-17] MEDS: hydrOXYzine PAMOATE 25 MG CAPSULE (FP) PO PRN ×2 (06:19→21:31)
[2020-10-17] MEDS: IBUPROFEN 400 MG TABLET (FP) PO PRN (06:19)
[2020-10-17] MEDS ORDERED: PATIENT'S OWN MEDICATION (NON-FORMULARY) (Lamotrigine [Lamictal] 150 MG Tablet) PO SCH (10:00)
[2020-10-17] MEDS: lamoTRIgine 100 MG TABLET PO SCH (10:28)
[2020-10-17] MEDS: cloNIDine HCL 0.1 MG TABLET PO SCH ×2 (10:28→21:30)
[2020-10-17] MEDS: amLODIPine BESYLATE 10 MG TABLET (FP) PO SCH (10:28)
[2020-10-17] MEDS: METHOCARBAMOL 500 MG TABLET PO SCH ×4 (10:28→21:30)
[2020-10-17] MEDS: PRENATAL VITAMINS W/ FOLIC ACID TABLET (FP) PO SCH (10:28)
[2020-10-17] MEDS: ESCITALOPRAM OXALATE 10 MG TABLET PO SCH (10:28)
[2020-10-17] MEDS: NICOTINE 21 MG/24 HOURS TOPICAL PATCH TD SCH (10:29)
[2020-10-17 10:44] LABS: HIV INTERPRETATION NEGATIVE (NEGATIVE)
[2020-10-17] MEDS: NICOTINE POLACRILEX 2 MG GUM BUC PRN ×2 (17:38→20:01)
[2020-10-17] MEDS: MELATONIN 5 MG TABLETS PO SCH (21:29)
[2020-10-17] MEDS: THIAMINE HCL 100 MG TABLET (FP) PO SCH (21:29)
[2020-10-17] MEDS: traZODone HCL 50 MG TABLET (FP) PO SCH (21:30)
[2020-10-17] MEDS: PRAZOSIN HCL 1 MG CAPSULE PO SCH (21:30)
[2020-10-18] MEDS: IBUPROFEN 400 MG TABLET (FP) PO PRN (06:30)
[2020-10-18] MEDS: hydrOXYzine PAMOATE 25 MG CAPSULE (FP) PO PRN ×2 (06:30→10:16)
[2020-10-18] MEDS: METHOCARBAMOL 500 MG TABLET PO SCH ×4 (10:15→21:27)
[2020-10-18] MEDS: lamoTRIgine 100 MG TABLET PO SCH (10:15)
[2020-10-18] MEDS: amLODIPine BESYLATE 10 MG TABLET (FP) PO SCH (10:15)
[2020-10-18] MEDS: ESCITALOPRAM OXALATE 10 MG TABLET PO SCH (10:15)
[2020-10-18] MEDS: PRENATAL VITAMINS W/ FOLIC ACID TABLET (FP) PO SCH (10:15)
[2020-10-18] MEDS: cloNIDine HCL 0.1 MG TABLET PO SCH ×2 (10:16→21:27)
[2020-10-18] MEDS: NICOTINE POLACRILEX 2 MG GUM BUC PRN ×4 (10:17→19:44)
[2020-10-18] MEDS: NICOTINE 21 MG/24 HOURS TOPICAL PATCH TD SCH (10:17)
[2020-10-18] MEDS: PRAZOSIN HCL 1 MG CAPSULE PO SCH (21:26)
[2020-10-18] MEDS: THIAMINE HCL 100 MG TABLET (FP) PO SCH (21:26)
[2020-10-18] MEDS: MELATONIN 5 MG TABLETS PO SCH (21:26)
[2020-10-18] MEDS: traZODone HCL 50 MG TABLET (FP) PO SCH (21:27)
[2020-10-19] MEDS: hydrOXYzine PAMOATE 25 MG CAPSULE (FP) PO PRN ×3 (06:25→21:27)
[2020-10-19] MEDS: IBUPROFEN 400 MG TABLET (FP) PO PRN ×2 (06:25→14:52)
[2020-10-19] MEDS: NICOTINE POLACRILEX 2 MG GUM BUC PRN ×4 (08:16→21:27)
[2020-10-19] MEDS: cloNIDine HCL 0.1 MG TABLET PO SCH ×2 (09:52→21:26)
[2020-10-19] MEDS: lamoTRIgine 100 MG TABLET PO SCH (09:52)
[2020-10-19] MEDS: ESCITALOPRAM OXALATE 10 MG TABLET PO SCH (09:52)
[2020-10-19] MEDS: METHOCARBAMOL 500 MG TABLET PO SCH ×4 (09:52→21:26)
[2020-10-19] MEDS: PRENATAL VITAMINS W/ FOLIC ACID TABLET (FP) PO SCH (09:52)
[2020-10-19] MEDS: amLODIPine BESYLATE 10 MG TABLET (FP) PO SCH (09:52)
[2020-10-19] MEDS: NICOTINE 21 MG/24 HOURS TOPICAL PATCH TD SCH (09:54)
[2020-10-19] MEDS: MELATONIN 5 MG TABLETS PO SCH (21:26)
[2020-10-19] MEDS: traZODone HCL 50 MG TABLET (FP) PO SCH (21:26)
[2020-10-19] MEDS: THIAMINE HCL 100 MG TABLET (FP) PO SCH (21:26)
[2020-10-19] MEDS: PRAZOSIN HCL 1 MG CAPSULE PO SCH (21:27)
[2020-10-20] MEDS: IBUPROFEN 400 MG TABLET (FP) PO PRN ×2 (06:47→13:04)
[2020-10-20] MEDS: hydrOXYzine PAMOATE 25 MG CAPSULE (FP) PO PRN ×3 (06:47→21:34)
[2020-10-20] MEDS: NICOTINE POLACRILEX 2 MG GUM BUC PRN ×2 (06:48→10:13)
[2020-10-20] MEDS: amLODIPine BESYLATE 10 MG TABLET (FP) PO SCH (10:10)
[2020-10-20] MEDS: PRENATAL VITAMINS W/ FOLIC ACID TABLET (FP) PO SCH (10:10)
[2020-10-20] MEDS: NICOTINE 21 MG/24 HOURS TOPICAL PATCH TD SCH (10:10)
[2020-10-20] MEDS: ESCITALOPRAM OXALATE 10 MG TABLET PO SCH (10:10)
[2020-10-20] MEDS: METHOCARBAMOL 500 MG TABLET PO SCH ×4 (10:10→21:33)
[2020-10-20] MEDS: cloNIDine HCL 0.1 MG TABLET PO SCH ×2 (10:10→21:32)
[2020-10-20] MEDS: lamoTRIgine 100 MG TABLET PO SCH (10:10)
[2020-10-20] MEDS: MELATONIN 5 MG TABLETS PO SCH (21:32)
[2020-10-20] MEDS: THIAMINE HCL 100 MG TABLET (FP) PO SCH (21:32)
[2020-10-20] MEDS: traZODone HCL 50 MG TABLET (FP) PO SCH (21:32)
[2020-10-20] MEDS: PRAZOSIN HCL 1 MG CAPSULE PO SCH (21:33)
[2020-10-21] MEDS: IBUPROFEN 400 MG TABLET (FP) PO PRN (06:43)
[2020-10-21] MEDS: hydrOXYzine PAMOATE 25 MG CAPSULE (FP) PO PRN ×4 (06:44→21:35)
[2020-10-21] MEDS: NICOTINE POLACRILEX 2 MG GUM BUC PRN ×2 (06:45→09:58)
[2020-10-21] MEDS: METHOCARBAMOL 500 MG TABLET PO SCH ×4 (09:58→21:34)
[2020-10-21] MEDS: cloNIDine HCL 0.1 MG TABLET PO SCH ×2 (09:58→21:33)
[2020-10-21] MEDS: NICOTINE 21 MG/24 HOURS TOPICAL PATCH TD SCH (09:58)
[2020-10-21] MEDS: amLODIPine BESYLATE 10 MG TABLET (FP) PO SCH (09:58)
[2020-10-21] MEDS: lamoTRIgine 100 MG TABLET PO SCH (09:58)
[2020-10-21] MEDS: PRENATAL VITAMINS W/ FOLIC ACID TABLET (FP) PO SCH (09:58)
[2020-10-21] MEDS: ESCITALOPRAM OXALATE 10 MG TABLET PO SCH (09:58)
[2020-10-21] MEDS: THIAMINE HCL 100 MG TABLET (FP) PO SCH (21:33)
[2020-10-21] MEDS: PRAZOSIN HCL 1 MG CAPSULE PO SCH (21:33)
[2020-10-21] MEDS: MELATONIN 5 MG TABLETS PO SCH (21:33)
[2020-10-21] MEDS: traZODone HCL 50 MG TABLET (FP) PO SCH (21:33)
[2020-10-22] MEDS: IBUPROFEN 400 MG TABLET (FP) PO PRN ×2 (06:37→12:05)
[2020-10-22] MEDS: hydrOXYzine PAMOATE 25 MG CAPSULE (FP) PO PRN ×3 (06:38→21:32)
[2020-10-22] MEDS: NICOTINE POLACRILEX 2 MG GUM BUC PRN ×2 (06:38→10:06)
[2020-10-22] MEDS: amLODIPine BESYLATE 10 MG TABLET (FP) PO SCH (10:04)
[2020-10-22] MEDS: ESCITALOPRAM OXALATE 10 MG TABLET PO SCH (10:04)
[2020-10-22] MEDS: cloNIDine HCL 0.1 MG TABLET PO SCH ×2 (10:04→21:31)
[2020-10-22] MEDS: METHOCARBAMOL 500 MG TABLET PO SCH ×4 (10:04→21:33)
[2020-10-22] MEDS: lamoTRIgine 100 MG TABLET PO SCH (10:04)
[2020-10-22] MEDS: NICOTINE 21 MG/24 HOURS TOPICAL PATCH TD SCH (10:04)
[2020-10-22] MEDS: PRENATAL VITAMINS W/ FOLIC ACID TABLET (FP) PO SCH (10:05)
[2020-10-22] MEDS: MELATONIN 5 MG TABLETS PO SCH (21:31)
[2020-10-22] MEDS: traZODone HCL 50 MG TABLET (FP) PO SCH (21:31)
[2020-10-22] MEDS: THIAMINE HCL 100 MG TABLET (FP) PO SCH (21:31)
[2020-10-22] MEDS: PRAZOSIN HCL 1 MG CAPSULE PO SCH (21:33)
[2020-10-23] MEDS: hydrOXYzine PAMOATE 25 MG CAPSULE (FP) PO PRN ×3 (04:14→21:23)
[2020-10-23] MEDS: IBUPROFEN 400 MG TABLET (FP) PO PRN ×2 (04:14→21:22)
[2020-10-23 07:10] LABS: SARS-CoV-2 NAA NOT DETECTED
[2020-10-23] MEDS: ESCITALOPRAM OXALATE 10 MG TABLET PO SCH (10:15)
[2020-10-23] MEDS: NICOTINE 21 MG/24 HOURS TOPICAL PATCH TD SCH (10:15)
[2020-10-23] MEDS: lamoTRIgine 100 MG TABLET PO SCH (10:15)
[2020-10-23] MEDS: PRENATAL VITAMINS W/ FOLIC ACID TABLET (FP) PO SCH (10:15)
[2020-10-23] MEDS: METHOCARBAMOL 500 MG TABLET PO SCH ×4 (10:15→21:22)
[2020-10-23] MEDS: cloNIDine HCL 0.1 MG TABLET PO SCH ×2 (10:15→21:22)
[2020-10-23] MEDS: amLODIPine BESYLATE 10 MG TABLET (FP) PO SCH (10:15)
[2020-10-23] MEDS: THIAMINE HCL 100 MG TABLET (FP) PO SCH (21:22)
[2020-10-23] MEDS: MELATONIN 5 MG TABLETS PO SCH (21:22)
[2020-10-23] MEDS: PRAZOSIN HCL 1 MG CAPSULE PO SCH (21:22)
[2020-10-23] MEDS: traZODone HCL 50 MG TABLET (FP) PO SCH (21:22)
[2020-10-23] MEDS: NICOTINE POLACRILEX 2 MG GUM BUC PRN (21:23)
[2020-10-24] MEDS: amLODIPine BESYLATE 10 MG TABLET (FP) PO SCH (10:04)
[2020-10-24] MEDS: METHOCARBAMOL 500 MG TABLET PO SCH ×4 (10:04→21:15)
[2020-10-24] MEDS: NICOTINE 21 MG/24 HOURS TOPICAL PATCH TD SCH (10:04)
[2020-10-24] MEDS: lamoTRIgine 100 MG TABLET PO SCH (10:04)
[2020-10-24] MEDS: ESCITALOPRAM OXALATE 10 MG TABLET PO SCH (10:04)
[2020-10-24] MEDS: cloNIDine HCL 0.1 MG TABLET PO SCH ×2 (10:04→21:15)
[2020-10-24] MEDS: PRENATAL VITAMINS W/ FOLIC ACID TABLET (FP) PO SCH (10:04)
[2020-10-24] MEDS: IBUPROFEN 400 MG TABLET (FP) PO PRN ×2 (10:05→19:36)
[2020-10-24] MEDS: hydrOXYzine PAMOATE 25 MG CAPSULE (FP) PO PRN ×2 (14:05→21:16)
[2020-10-24] MEDS: ACETAMINOPHEN 325 MG TABLET (FP) PO PRN (14:05)
[2020-10-24] MEDS: NICOTINE POLACRILEX 2 MG GUM BUC PRN (19:37)
[2020-10-24] MEDS: THIAMINE HCL 100 MG TABLET (FP) PO SCH (21:15)
[2020-10-24] MEDS: traZODone HCL 50 MG TABLET (FP) PO SCH (21:15)
[2020-10-24] MEDS: MELATONIN 5 MG TABLETS PO SCH (21:15)
[2020-10-24] MEDS: PRAZOSIN HCL 1 MG CAPSULE PO SCH (21:15)
[2020-10-25 05:24] VITALS: TEMP 97.5
[2020-10-25] MEDS ORDERED: MODERNA COVID-19 VACC,MRNA/PF 100 MCG/0.5 ML IM ONE ×2 (09:00)
[2020-10-25 09:16] VITALS: BP 116/83; PULSE 84
[2020-10-25] MEDS: METHOCARBAMOL 500 MG TABLET PO SCH (09:52)
[2020-10-25] MEDS: cloNIDine HCL 0.1 MG TABLET PO SCH (09:52)
[2020-10-25] MEDS: hydrOXYzine PAMOATE 25 MG CAPSULE (FP) PO PRN (09:52)
[2020-10-25] MEDS: PRENATAL VITAMINS W/ FOLIC ACID TABLET (FP) PO SCH (09:52)
[2020-10-25] MEDS: lamoTRIgine 100 MG TABLET PO SCH (09:52)
[2020-10-25] MEDS: amLODIPine BESYLATE 10 MG TABLET (FP) PO SCH (09:53)
[2020-10-25] MEDS: NICOTINE 21 MG/24 HOURS TOPICAL PATCH TD SCH (09:54)
[2020-10-25] MEDS: ESCITALOPRAM OXALATE 10 MG TABLET PO SCH (09:54)
== END 2020-10-25 09:55 | disposition home or self-care (01) | DRG 772 ==
LOC: YASAS 11:34 → Y3W 11:36
PROVIDERS: ADMIT Allergy & Immunology; ATTEND Allergy & Immunology
PROC: HZ42ZZZ Group Counseling for Substance Abuse Treatment, Cognitive-Behavioral (ICD-10-PCS; principal; 2020-10-16)
DX: F10.20 Alcohol dependence, uncomplicated (principal); F14.20 Cocaine dependence, uncomplicated; F12.20 Cannabis dependence, uncomplicated; F17.210 Nicotine dependence, cigarettes, uncomplicated; F43.10 Post-traumatic stress disorder, unspecified; I10 Essential (primary) hypertension; J45.909 Unspecified asthma, uncomplicated; E66.01 Morbid (severe) obesity due to excess calories; Z68.41 Body mass index [BMI] 40.0-44.9, adult; Z88.0 Allergy status to penicillin; Z91.018 Allergy to other foods
CPT/HCPCS: 36415; 82962; 87389; C9803; J0735; U0003; U0005